=== PATIENT | female | born 1960 | race Caucasian/White ===

== ENCOUNTER 2017-02-07 16:04 | Emergency (ER) | payer OTHER ==
[~2017-02-07] VITALS: Ht 175.3 cm; Wt 72.5 kg
[~2017-02-07 16:04] MED LIST: TAB-TAB
[2017-02-07 17:11] VITALS: BP 149/84; PULSE 70; RESP 22; TEMP 98; O2SAT 98
[2017-02-07] MEDS ORDERED: KETOROLAC TROMETHAMINE 30 MG/ML (IVP) VIAL IV PUSH ONE (17:30)
[2017-02-07 18:19] LABS: AUTOMATED NEUTROPHIL # 10.3 TH/MM3 (1.8-7.7); BASOPHIL % 0.2 % (0.0-2.0); EOSINOPHIL % 0.2 % (0.0-4.0); HEMATOCRIT 39.9 % (35.0-46.0); HEMO FLAGS DIFF FINAL; LYMPH % 11.1 % (9.0-44.0); LYMPHOCYTE # 1.4 TH/MM3 (1.0-4.8); MEAN CELL VOLUME 86.8 FL (80.0-100.0); MEAN CORPUSCULAR HEMOGLOBIN 29.4 PG (27.0-34.0); MEAN CORPUSCULAR HGB CONC 33.9 % (32.0-36.0); MONO % 6.1 % (0.0-8.0); NEUT % 82.4 % (16.0-70.0); PLATELET COUNT 248 TH/MM3 (150-450); RED CELL DISTRIBUTION WIDTH 12.5 % (11.6-17.2); WHITE BLOOD COUNT 12.5 TH/MM3 (4.0-11.0)
--- NOTE | 2017-02-07 18:22 | PD ---
HPI . Left wrist injury Chief Complaint: Injury Time Seen by Provider: 17:10 Travel History International Travel<30 days: No Contact w/Intl Traveler<30days: No Traveled to known affect area: No History of Present Illness HPI 56 year old female patient arrives via EMS for evaluation of left wrist injury that occurred when she fell off a ladder and tried to catch her fall with her left hand. Patient denies hitting her head or losing consciousness. Patient did not sustain any other injuries outside the left wrist during this fall. Patient was splinted, ice applied and IV obtained and 8mg IV morphine given during transport. Patient has no major medical history and doesn't take any daily medications. PFSH Past Medical History Medical History: Denies Significant Hx Diminished Hearing: No : 3 Para: 2 Tubal Ligation: Yes Past Surgical History Gynecologic Surgery: Yes Hysterectomy: Yes Tonsillectomy: Yes Social History Alcohol Use: No Tobacco Use: No Substance Use: No Allergies-Medications (Allergen,Severity, Reaction): Coded Allergies: bee venom protein (honey bee) (Unverified Allergy, Mild, SHOCK, 02/07/17) penicillin G (Unverified Allergy, Mild, SHOCK, 02/07/17) Reported Meds & Prescriptions Reported Meds & Active Scripts Active Percocet (Oxycodone-Acetaminophen) 5-325 mg Tab 1 Tab PO Q6H PRN Review of Systems Except as stated in HPI: all other systems reviewed are Neg Physical Exam Narrative GENERAL: Well-nourished, well-developed 56-year-old female patient in no acute respiratory distress. SKIN: Focused skin assessment warm/dry. HEAD: Normocephalic. Atraumatic. NEUROLOGICAL: Awake and alert. Cranial nerves II through XII intact. Motor and sensory grossly within normal limits. Five out of 5 muscle strength in all muscle groups. Normal speech. EYES: No scleral icterus. No injection or drainage. NECK: Supple, trachea midline. No JVD or lymphadenopathy. CARDIOVASCULAR: Regular rate and rhythm without murmurs, gallops, or rubs. Cap refill less than 3 seconds on the left hand. Radial pulses +2 bilaterally. RESPIRATORY: Breath sounds equal bilaterally. No accessory muscle use. GASTROINTESTINAL: Abdomen soft, non-tender, nondistended. MUSCULOSKELETAL: Left wrist obviously mildly deformed with ecchymosis and edema. No cyanosis or erythema. BACK: Nontender without obvious deformity. No CVA tenderness. Data Data Last Documented VS Vital Signs Date Time Temp Pulse Resp B/P (MAP) Pulse Ox O2 Delivery O2 Flow Rate FiO2 02/07/17 19:53 02/07/17 18:54 100 Nasal Cannula 2.00 02/07/17 17:11 98.0 70 22 Orders Orders Ice/Cold Pack (02/07/17 17:12) Ketorolac Inj (Toradol Inj) (02/07/17 17:30) Basic Metabolic Panel (Bmp) (02/07/17 17:27) Complete Blood Count With Diff (02/07/17 17:27) Prothrombin Time / Inr (Pt) (02/07/17 17:27) Act Partial Throm Time (Ptt) (02/07/17 17:27) Wrist, Limited (Ap&Lat) (02/07/17 ) Propofol 200 Mg/20 Ml Inj (Diprivan 200 (02/07/17 18:45) Protein Corrected Calcium(Pcc) (02/07/17 17:45) Wrist, Limited (Ap&Lat) (02/07/17 ) Sling Cradle Arm (02/07/17 ) Ed Discharge Order (02/07/17 19:45) Sling Cradle Arm (02/07/17 ) Fiberglass Sugartong Sp Ad Arm (02/07/17 ) Labs Laboratory Tests Test 02/07/17 17:45 White Blood Count 12.5 TH/MM3 Red Blood Count 4.60 MIL/MM3 Hemoglobin 13.5 GM/DL Hematocrit 39.9 % Mean Corpuscular Volume 86.8 FL Mean Corpuscular Hemoglobin 29.4 PG Mean Corpuscular Hemoglobin Concent 33.9 % Red Cell Distribution Width 12.5 % Platelet Count 248 TH/MM3 Mean Platelet Volume 7.8 FL Neutrophils (%) (Auto) 82.4 % Lymphocytes (%) (Auto) 11.1 % Monocytes (%) (Auto) 6.1 % Eosinophils (%) (Auto) 0.2 % Basophils (%) (Auto) 0.2 % Neutrophils # (Auto) 10.3 TH/MM3 Lymphocytes # (Auto) 1.4 TH/MM3 Monocytes # (Auto) 0.8 TH/MM3 Eosinophils # (Auto) 0.0 TH/MM3 Basophils # (Auto) 0.0 TH/MM3 CBC Comment DIFF FINAL Differential Comment Prothrombin Time 10.4 SEC Prothromb Time International Ratio 0.9 RATIO Activated Partial Thromboplast Time 24.5 SEC Blood Urea Nitrogen 16 MG/DL Creatinine 0.59 MG/DL Random Glucose 111 MG/DL Total Protein 5.8 GM/DL Calcium Level 7.2 MG/DL Sodium Level 143 MEQ/L Potassium Level 3.5 MEQ/L Chloride Level 110 MEQ/L Carbon Dioxide Level 26.4 MEQ/L Anion Gap 7 MEQ/L Estimat Glomerular Filtration Rate 105 ML/MIN Protein Corrected Calcium 7.9 MG/DL [facility] Medical Decision Making Medical Screen Exam Complete: Yes Emergency Medical Condition: Yes Differential Diagnosis Differential diagnosis include but not limited to wrist fracture, wrist sprain, wrist contusion, fall Narrative Course 56 year old female presents to the emergency department for evaluation of left wrist injury. Patient arrived with a temporary splint in place, IV in place and 8mg IV morphine on board. X-ray of the left wrist ordered and pending, ice applied and IV Toradol ordered for pain management. Patient was still complaining of pain despite the morphine. Left hand is neurovascularly intact. Left wrist is obviously mildly deformed. CBC, BMP, PT/INR ordered and pending. X -ray of the left wrist shows posteriorly angulated, possibly comminuted, fractures of the distal radius and ulna. Patient will need conscious sedation to reduce the left wrist. Dr. Barajas will assume care of this patient. Please see his documentation for further details and disposition. Scripts Oxycodone-Acetaminophen (Percocet) 5-325 mg Tab 1 TAB PO Q6H Y for PAIN, #20 TAB 0 Refills Prov: Elfego Barajas MD 02/07/17 Mine Orozco Feb 07, 2017 18:22
--- NOTE | 2017-02-07 18:27 | RADRPT ---
EXAM DATE/TIME: 02/07/2017 00:00 [facility] COMPARISON: No previous studies available for comparison. INDICATIONS : Left wrist pain, fall. MEDICAL HISTORY : None. SURGICAL HISTORY : None. ENCOUNTER: Initial ACUITY: 1 day PAIN SCORE: 10/10 LOCATION: Left wrist FINDINGS: There is a transverse fracture through the metaphysis of the radius and ulna with posterior angulatio n of both fractures. Possible comminution with 1.4 cm fragment dorsally. The carpus remains in alig nment with the distal radial fragment. No radiopaque foreign bodies. Prominent soft tissue swelling about the volar aspect of the distal forearm and wrist. The carpal bones appear grossly intact. CONCLUSION: Posteriorly angulated, possibly comminuted, fractures of the distal radius and ulna. Candido Vega MD on February 07, 2017 at 18:23 Board Certified Radiologist. This report was verified electronically.
[2017-02-07 18:33] LABS: APTT (PATIENT) 24.5 SEC (24.3-30.1); INTERNATIONAL NORMALIZED RATIO 0.9 RATIO; PROTHROMBIN TIME - PATIENT 10.4 SEC (9.8-11.6)
[2017-02-07] MEDS ORDERED: PROPOFOL 200 MG/20 ML AMP IV ONE (18:45)
[2017-02-07 18:52] LABS: BICARBONATE 26.4 MEQ/L (21.0-32.0); POTASSIUM 3.5 MEQ/L (3.5-5.1)
[2017-02-07 18:54] VITALS: O2SAT 100
--- NOTE | 2017-02-07 19:07 | PD ---
Data Data Last Documented VS Vital Signs Date Time Temp Pulse Resp B/P (MAP) Pulse Ox O2 Delivery O2 Flow Rate FiO2 02/07/17 17:11 98.0 70 22 149/84 (105) 98 Room Air Orders Orders Ice/Cold Pack (02/07/17 17:12) Ketorolac Inj (Toradol Inj) (02/07/17 17:30) Basic Metabolic Panel (Bmp) (02/07/17 17:27) Complete Blood Count With Diff (02/07/17 17:27) Prothrombin Time / Inr (Pt) (02/07/17 17:27) Act Partial Throm Time (Ptt) (02/07/17 17:27) Wrist, Limited (Ap&Lat) (02/07/17 ) Propofol 200 Mg/20 Ml Inj (Diprivan 200 (02/07/17 18:45) Protein Corrected Calcium(Pcc) (02/07/17 17:45) Wrist, Limited (Ap&Lat) (02/07/17 ) Labs Laboratory Tests Test 02/07/17 17:45 White Blood Count 12.5 TH/MM3 Red Blood Count 4.60 MIL/MM3 Hemoglobin 13.5 GM/DL Hematocrit 39.9 % Mean Corpuscular Volume 86.8 FL Mean Corpuscular Hemoglobin 29.4 PG Mean Corpuscular Hemoglobin Concent 33.9 % Red Cell Distribution Width 12.5 % Platelet Count 248 TH/MM3 Mean Platelet Volume 7.8 FL Neutrophils (%) (Auto) 82.4 % Lymphocytes (%) (Auto) 11.1 % Monocytes (%) (Auto) 6.1 % Eosinophils (%) (Auto) 0.2 % Basophils (%) (Auto) 0.2 % Neutrophils # (Auto) 10.3 TH/MM3 Lymphocytes # (Auto) 1.4 TH/MM3 Monocytes # (Auto) 0.8 TH/MM3 Eosinophils # (Auto) 0.0 TH/MM3 Basophils # (Auto) 0.0 TH/MM3 CBC Comment DIFF FINAL Differential Comment Prothrombin Time 10.4 SEC Prothromb Time International Ratio 0.9 RATIO Activated Partial Thromboplast Time 24.5 SEC Blood Urea Nitrogen 16 MG/DL Creatinine 0.59 MG/DL Random Glucose 111 MG/DL Total Protein 5.8 GM/DL Calcium Level 7.2 MG/DL Sodium Level 143 MEQ/L Potassium Level 3.5 MEQ/L Chloride Level 110 MEQ/L Carbon Dioxide Level 26.4 MEQ/L Anion Gap 7 MEQ/L Estimat Glomerular Filtration Rate 105 ML/MIN Protein Corrected Calcium 7.9 MG/DL MDM Supervised Visit with [facility]ILBER: Yes Narrative Course I, Dr. Barajas, have reviewed the advance practice practitioner's documentation and am in agreement, met with the patient face to face, made the diagnosis, and the medical decision making was done by me. See her note for further details. Briefly this is a 56-year-old female who fell onto her left outstretched arm off of a ladder from a height of about 3 feet while painting today. She presents with obvious deformity to her left forearm complaining of moderate pain. Left upper extremity is neurovascularly intact with all compartments supple. Left wrist x-ray shows Colles' fracture with fracture of both the distal radius and distal ulna displaced dorsally with apex volar. There are no open lesions. This is a closed fracture. Procedural sedation and closed reduction were performed by me. See procedure note. Postreduction x-rays ordered. Postreduction x-rays read as near anatomic alignment of the fractures. Case discussed with on-call orthopedist Dr. Nino who reviewed x-rays and would like the patient follow-up with him as an outpatient this week. Patient is happy with this plan. She'll be placed in a sling and advised to remove her arm from the sling and range her shoulder every couple of hours to prevent a frozen shoulder. She was informed on when to return to the emergency department. She verbalizes understanding and agreement with plan. Procedures Procedure Narrative Procedural sedation for closed reduction of left wrist fracture: After the risks and benefits were discussed the following procedure was performed: MODERATE SEDATION: The patient was placed on a garbage pick up man and pulse oximetry. An ambu bag and suction was immediately available at bedside. The patient was monitored by the nurse. Oxygen saturation , heart rate and blood pressure were monitored. Procedural sedation was acheived using 80 mg of IV propofol. The patient was observed until awake and alert. Procedural Sedation time in attendance was 15 minutes. Close reduction of left distal forearm/wrist fracture: After adequate sedation was achieved, close reduction of the left wrist fracture was performed by me. Sugar tong splint applied after reduction was performed. Postreduction x-rays ordered. Normal capillary refill in left hand post reduction. Tolerated well. No complications. Diagnosis Primary Impression: Closed fracture of left wrist Qualified Codes: S62.102A - Fracture of unspecified carpal bone, left wrist, initial encounter for closed fracture Referrals: Joe Nino Jr., MD 3 days Orthopedist Additional Instruction: Follow-up with orthopedist Dr. Nino or an orthopedist of your choice this week. Removal arm from sling every couple of hours and range your shoulder to prevent a frozen shoulder. Return to the emergency department for worsening symptoms or any other concerns. Scripts Oxycodone-Acetaminophen (Percocet) 5-325 mg Tab 1 TAB PO Q6H Y for PAIN, #20 TAB 0 Refills Prov: Elfego Barajas MD 02/07/17 Disposition: 01 DISCHARGE HOME Condition: Stable Elfego Barajas MD Feb 07, 2017 19:07
[2017-02-07 19:15] LABS: CALCIUM-PROTEIN CORRECTED 7.9 MG/DL (8.5-10.1)
--- NOTE | 2017-02-07 19:35 | RADRPT ---
EXAM DATE/TIME: 02/07/2017 19:21 [facility] COMPARISON: WRIST LEFT LIMITED (AP & LAT), February 07, 2017, 0:00. INDICATIONS : Post reduction left wrist. MEDICAL HISTORY : None. SURGICAL HISTORY : None. ENCOUNTER: Subsequent ACUITY: 1 day PAIN SCORE: 0/10 LOCATION: Left Wrist FINDINGS: 2 views of the wrist are performed in fiberglass cast. The fractures of the radius and ulna have bee n reduced and are in near anatomic alignment. There is comminution of the radial fracture. CONCLUSION: Fractures of the radius and ulna, in cast, are in near-anatomic alignment. Candido Vega MD on February 07, 2017 at 19:33 Board Certified Radiologist. This report was verified electronically.
[2017-02-07] MEDS ORDERED: PERC5TAB12 PO (19:45)
== END 2017-02-07 20:24 | disposition home or self-care (01) ==
LOC: NEPD 16:04
DX: S52.592A Other fractures of lower end of left radius, initial encounter for closed fracture (principal); S52.692A Other fracture of lower end of left ulna, initial encounter for closed fracture; W11.XXXA Fall on and from ladder, initial encounter
CPT/HCPCS: 25675; 73100; 80048; 84155; 85025; 85610; 85730; 96374; 99152; 99285; J1885

== ENCOUNTER 2017-02-14 13:19 | Emergency (ER) | payer OTHER ==
[~2017-02-14] VITALS: Ht 175.3 cm; Wt 72.5 kg
[~2017-02-14 13:19] MED LIST changes: +PERC5TAB12 PO; -TAB-TAB
[2017-02-14 13:20] VITALS: BP 163/72; PULSE 79; RESP 16; TEMP 98.6; O2SAT 96
[2017-02-14] MEDS ORDERED: IBUPROFEN 600 MG TAB PO ONE (15:00)
--- NOTE | 2017-02-14 15:16 | PD ---
HPI Chief Complaint: Pain: Acute or Chronic Time Seen by Provider: 14:01 Travel History International Travel<30 days: No Contact w/Intl Traveler<30days: No Traveled to known affect area: No History of Present Illness HPI Patient is a 57-year-old female who comes in because she noticed some numbness and swelling to her left hand as well as some bruising to her fingers. She was here a week ago and was found to have a radius and ulnar fracture and she was placed in splint. She said today at work people were concerned and told her she needed to come to the emergency department. She says she is not really having any pain. She has an appointment with Dr. Fernández next week. [facility] Past Medical History Diminished Hearing: No : 3 Para: 2 Tubal Ligation: Yes Past Surgical History Gynecologic Surgery: Yes Hysterectomy: Yes Tonsillectomy: Yes Social History Alcohol Use: No Tobacco Use: No Substance Use: No Allergies-Medications (Allergen,Severity, Reaction): Coded Allergies: bee venom protein (honey bee) (Unverified Allergy, Mild, SHOCK, 02/07/17) penicillin G (Unverified Allergy, Mild, SHOCK, 02/07/17) Reported Meds & Prescriptions Reported Meds & Active Scripts Active Percocet (Oxycodone-Acetaminophen) 5-325 mg Tab 1 Tab PO Q6H PRN Review of Systems General / Constitutional: No: Fever, Chills Cardiovascular: No: Chest Pain or Discomfort Respiratory: No: Shortness of Breath Gastrointestinal: No: Nausea, Vomiting Musculoskeletal: Positive: Edema Skin: Positive Change in Pigmentation Neurologic: No: Weakness, Dizziness Physical Exam Narrative GENERAL: Awake and alert, in no acute distress. SKIN: Focused skin assessment warm/dry. Small areas of ecchymosis to the third and fourth fingers of the left hand. HEAD: Atraumatic. Normocephalic. EYES: Pupils equal and round. No scleral icterus. ENT: Mucous membranes pink and moist. CARDIOVASCULAR: Regular rate and rhythm. No murmur appreciated. RESPIRATORY: No accessory muscle use. Clear to auscultation. Breath sounds equal bilaterally. MUSCULOSKELETAL: No obvious deformities. No clubbing. No cyanosis. Mild edema of the left hand. Compartments of the left forearm are soft, nontender to palpation. Radial pulses present. NEUROLOGICAL: Awake and alert. No obvious cranial nerve deficits. Motor grossly within normal limits. Normal speech. Data Data Last Documented VS Vital Signs Date Time Temp Pulse Resp B/P (MAP) Pulse Ox O2 Delivery O2 Flow Rate FiO2 02/14/17 13:20 98.6 79 16 163/72 (102) 96 Room Air Orders Orders Splint Or Brace Apply/Monitor (02/14/17 14:01) Ibuprofen (Motrin) (02/14/17 15:00) MDM Medical Decision Making Medical Screen Exam Complete: Yes Emergency Medical Condition: Yes Medical Record Reviewed: Yes Differential Diagnosis Fracture versus edema versus pain Narrative Course Patient is a 57-year-old female with a radius and ulna fracture of her left arm , who comes in due to swelling and discoloration of her left hand. Splint was removed on arrival. While she was here in the emergency department the swelling improved. Compartments are all soft, making compartment syndrome very unlikely especially because the patient is not experiencing any pain. The splint was reapplied, but more loosely this time. She is advised to eat per appointment with Dr. Fernández. Advised of things to watch out for and when to return to the emergency department. Advised to return any time for any worsening symptoms. Diagnosis Primary Impression: Radius and ulna distal fracture Qualified Codes: S52.502D - Unspecified fracture of the lower end of left radius, subsequent encounter for closed fracture with routine healing; S52.602D - Unspecified fracture of lower end of left ulna, subsequent encounter for closed fracture with routine healing Patient Instructions: Arm Fracture in Adults (ED), General Instructions Additional Instructions: Follow-up with orthopedics as scheduled. Take pain medicine as needed. Return to the ED as needed for any worsening symptoms. Disposition: 01 DISCHARGE HOME Condition: Stable Mine Sanderson MD Feb 14, 2017 15:16
== END 2017-02-14 16:06 | disposition home or self-care (01) ==
LOC: NEPD 13:19
DX: S52.602D Unspecified fracture of lower end of left ulna, subsequent encounter for closed fracture with routine healing (principal); S52.502D Unspecified fracture of the lower end of left radius, subsequent encounter for closed fracture with routine healing; X58.XXXD Exposure to other specified factors, subsequent encounter
CPT/HCPCS: 29125

== ENCOUNTER → 2017-04-15 | Emergency (ER) | payer OTHER ==
[~2017-04-15] VITALS: Ht 172.7 cm; Wt 80.0 kg
[~2017-04-15] MED LIST changes: +SULF1TAB23 PO
[2017-04-15 01:47] VITALS: BP 159/78; PULSE 75; RESP 16; TEMP 97.9; O2SAT 95
--- NOTE | 2017-04-15 02:33 | PD ---
HPI Chief Complaint: Complaint Time Seen by Provider: 02:07 Travel History International Travel<30 days: No Contact w/Intl Traveler<30days: No Traveled to known affect area: No History of Present Illness HPI 57-year-old white female presents to emergency department for complaints of a urinary tract infection. She states that she has increased urinary frequency, urgency and dysuria. She had called Dr. Avalos her flare stitcher 2 days ago who had called her and Bactrim DS. She is also taking [id number] Azo. She has had 3 doses of antibiotics but has had persistent symptoms. She denies any fever or chills. No nausea vomiting. No back pain. She states that these are similar symptoms when she has had a urinary tract infection in the past. She states that she's not been able sleep and comes to the ER. History Past Medical Histgory Narrative Medical Left wrist fracture UTI Medical History: Denies Significant Hx Tetanus Vaccination: < 5 Years Menopausal: Yes Past Surgical History Narrative Surgical ORIF left wrist, hysterectomy Social History Alcohol Use: No Tobacco Use: No Allergies-Medications (Allergen,Severity, Reaction): Coded Allergies: bee venom protein (honey bee) (Verified Allergy, Mild, SHOCK, 04/15/17) penicillin G (Verified Allergy, Mild, SHOCK, 04/15/17) Reported Meds & Prescriptions Reported Meds & Active Scripts Active Reported Sulfamethoxazole-Trimethoprim 800-160 Mg Tab 1 Tab PO BID Review of Systems General / Constitutional: No: Fever Eyes: No: Visual changes HENT: No: Headaches Cardiovascular: No: Chest Pain or Discomfort Respiratory: No: Shortness of Breath Gastrointestinal: No: Nausea, Vomiting, Abdominal Pain Genitourinary: Positive: Urgency, Frequency, Dysuria, No: Hematuria, Discharge Musculoskeletal: No: Pain Skin: No Rash Neurologic: No: Weakness Psychiatric: No: Depression Endocrine: No: Polydipsia Hematologic/Lymphatic: No: Easy Bruising Physical Exam Narrative GENERAL: This is a well-nourished, well-developed patient, in no apparent distress. SKIN: No rashes, ecchymoses or lesions. Warm and dry. HEAD: Atraumatic. Normocephalic. EYES: PERRL, EOMI, no discharge or injection. No scleral icterus. EARS: Clear NOSE: Nasal turbinates appear normal. THROAT: Mucosa pink and moist. Airway patent. NECK: Trachea midline. supple, moves head freely. LUNGS: Clear to auscultation. CV: Regular in rhythm. ABDOMEN: Soft nontender. No CVA tenderness. EXT: No clubbing cyanosis or edema. Data Data Last Documented VS Vital Signs Date Time Temp Pulse Resp B/P (MAP) Pulse Ox O2 Delivery O2 Flow Rate FiO2 04/15/17 01:47 97.9 75 16 159/78 (105) 95 Room Air MDM Medical Screen Exam Complete: Yes Emergency Medical Condition: No Differential Diagnosis Differential diagnoses: Pyelonephritis, UTI, vaginitis Narrative Course A medical screening exam was performed: At the time of evaluation the presenting medical condition was determined not to be of an emergent nature. The patient was given the option of receiving additional care, but declined. Patient was given options for additional community resources from which to obtain care. The Patient Has Been advised to seek medical attention for their presenting complaint. The patient has been advised to return to the ER at any time if an emergent condition develops. Primary Impression: Encounter for medical screening examination Condition: Stable Dank Machado Apr 15, 2017 02:33
== END | disposition left against medical advice (07) ==
LOC: NEPD 01:46
DX: R30.0 Dysuria (principal)
CPT/HCPCS: 99281